=== PATIENT | male | born 1980 | race Caucasian/White ===

== ENCOUNTER 2020-02-07 08:59 | Emergency (ER) | payer OTHER, SELFPAY ==
--- NOTE | ~2020-02-07 | XR_ITS ---
EXAMINATION: XR ribs RT 2V w CXR 2V DATE: 02/07/2020 09:55 INDICATION: Right chest pain. TECHNIQUE: Frontal and lateral views of the chest and 3 views of the right ribs were obtained. COMPARISON: Chest 2 views 10/31/2018 FINDINGS: CHEST TWO VIEWS: The chest demonstrates clear lungs without pneumonia, pleural effusion, or pneumotho rax. The heart size is normal. There is an old healed fracture of left clavicle. RIGHT RIBS: There is no rib fracture. IMPRESSION: 1. No rib fracture. Reviewed, dictated and finalized at location A. R TOBACCO HEAD IMPRESSION: 1. No rib fracture.
[2020-02-07 09:12] VITALS: BP 172/98; PULSE 89; RESP 18; TEMP 36.7; O2SAT 100; O2SAT 99
[2020-02-07] MEDS: LIDOCAINE 5% PATCH 1 PATCH TRANSDERM (09:49)
[2020-02-07] MEDS: SODIUM CHLORIDE 0.9% IV 1,000 ML 999 ML IV CONT (10:07)
[2020-02-07 10:14] LABS: Basophils Absolute Auto 0.1 K/mm3 (0.0-0.1); Basophils Percent Auto 0.6 % (0.2-1.2); Eosinophils Absolute Auto 0.3 K/mm3 (0-0.3); Eosinophils Percent Auto 3.4 % (0-4.4); Hematocrit 44.4 % (42.0-52.0); Hemoglobin 15.1 g/dL (14.0-18.0); Immature Granulocyte Absolute 0.02 K/mm3 (0.00-0.031); Immature Granulocyte Percent A 0.3 % (0-0.5); Lymphocytes Absolute Auto 2.35 K/mm3 (0.9-3.2); Lymphocytes Percent Auto 29.7 % (18.3-44.2); Mean Corpuscular Hemoglobin 30.3 pg (26-34); Mean Corpuscular Volume 89.2 fl (80-100); Mean Platelet Volume 10.3 fl (7.4-10.4); Monocytes Absolute Auto 0.5 K/mm3 (0.1-0.6); Monocytes Percent Auto 6.4 % (2.6-8.5); Neutrophils Absolute Auto 4.7 K/mm3 (1.3-6.7); Neutrophils Percent Auto 59.6 % (45.5-73.1); Platelet Count Result 234 k/mm3 (150-375); Red Blood Count 4.98 M/mm3 (4.6-6.20); Red Cell Distribution Width 12.9 % (11.5-14.5); White Blood Count 7.9 K/mm3 (4.5-10.0)
--- NOTE | 2020-02-07 10:16 | ED.GENADULT ---
HPI - General Adult General Chief complaint: Unspecified Stated complaint: right rib pain Time Seen by Provider: 02/07/20 09:06 Source: patient Mode of arrival: ambulatory Limitations: no limitations History of Present Illness HPI narrative: Patient is a 39-year-old male who presents with several days duration of anterior lateral right rib pain patient notes coughing spell with development of pain which has persisted worse with any breathing or palpation patient denies radiation of pain or other complaints patient denies URI symptoms patient on arrival to emergency department is in no distress and does not take anything for his symptoms Related Data Allergies Allergy/AdvReac Type Severity Reaction Status Date / Time No Known Allergies Allergy Mild Verified 02/07/20 09:27 Review of Systems Review of Systems: All systems reviewed & are unremarkable except as noted in HPI and below PMFSH Social History Social History Gender identity (if verbalized by the patient): Male Exam Narrative: Exam Narrative: GENERAL: Well-appearing, well-nourished, and in no acute distress. HEAD: Normocephalic, atraumatic. EYES: PERRLA and EOMI. ENT: Nares clear, no rhinorrhea or epistaxis. Mucous membranes moist. NECK: Supple. No adenopathy or masses. CHEST: Clear to auscultation. No respiratory distress. No wheezes rales or rhonchi. Tenderness of the anterior lateral right ribs no deformity noted point tenderness no rash or other abnormality HEART: Regular rate and rhythm. No murmur heard. Normal peripheral pulses. ABDOMEN: Soft, nontender, nondistended EXTREMITIES: Normal range of motion. No edema. SKIN: Warm, dry, no rash. NEURO: No focal deficits. Alert and oriented x3. Cranial nerves II through XII grossly intact PSYCH: Normal mood and affect. Course Course Emergency Course: Patient in the room at this time aware of case findings treatment plan diagnosis will be discharged home for plan follow-up with primary care for reevaluation of his blood pressure and other concerns patient will be treated for chest wall pain Vital Signs Vital signs: Vital Signs Temperature 98.0 F 02/07/20 09:12 Pulse Rate 89 02/07/20 09:12 Respiratory Rate 18 02/07/20 09:12 Blood Pressure 172/98 H 02/07/20 09:12 Pulse Oximetry 99 02/07/20 09:12 Temperature 98.0 F 02/07/20 09:12 Pulse Rate 89 02/07/20 09:12 Respiratory Rate 18 02/07/20 09:12 Blood Pressure 172/98 H 02/07/20 09:12 Pulse Oximetry 100 02/07/20 09:12 Medical Decision Making MDM Narrative Medical decision making narrative: Patient in the room no distress no concerning findings on the chest x-ray the negative D-dimer coupled with vital signs it is felt that the patient does not likely have a PE patient will be managed outpatient given reasons to return. Patient afebrile nontoxic-appearing. ABCs stable hemodynamically stable Vital Signs Vital Signs: Vital Signs Temperature 98.0 F 02/07/20 09:12 Pulse Rate 89 02/07/20 09:12 Respiratory Rate 18 02/07/20 09:12 Blood Pressure 172/98 H 02/07/20 09:12 Pulse Oximetry 99 02/07/20 09:12 Temperature 98.0 F 02/07/20 09:12 Pulse Rate 89 02/07/20 09:12 Respiratory Rate 18 02/07/20 09:12 Blood Pressure 172/98 H 02/07/20 09:12 Pulse Oximetry 100 02/07/20 09:12 Lab Data Result diagrams: 02/07/20 10:07 02/07/20 10:07 Labs: Lab Results 02/07/20 02/07/20 02/07/20 Range/Units 10:07 10:07 10:07 WBC 7.9 (4.5-10.0) K/mm3 RBC 4.98 (4.6-6.20) M/mm3 Hgb 15.1 (14.0-18.0) g/dL Hct 44.4 (42.0-52.0) % MCV 89.2 (80-100) fl MCH 30.3 (26-34) pg MCHC 34.0 (32-36) g/dl RDW 12.9 (11.5-14.5) % Plt Count 234 (150-375) k/mm3 MPV 10.3 (7.4-10.4) fl Immature Gran % (Auto) 0.3 (0-0.5) % Neut % (Auto) 59.6 (45.5-73.1) % Lymph % (Auto) 29.7 (18.3-44.
[2020-02-07 10:26] LABS: D Dimer 0.32 ug/mL (<0.48); Potassium 4.2 mmol/L (3.4-5.0)
[2020-02-07 10:35] LABS: Alanine Aminotransferase 61 U/L (4-50); Albumin Level 4.3 g/dL (3.5-5.1); Alkaline Phosphatase 110 U/L (38-126); Anion Gap 8 mmol/L (8-16); Aspartate Amino Transferase 51 U/L (17-59); Bilirubin,Total 0.5 mg/dL (0.2-1.3); Blood Urea Nitrogen 9 mg/dL (9-20); Calcium 9.3 mg/dL (8.4-10.2); Carbon Dioxide 26 mmol/L (22-30); Chloride 106 mmol/L (98-107); Estimated CRCL calculation 127 ml/min; Estimated Glomerular Filt Rate > 60; Glucose 110 mg/dL (75-110); Sodium 140 mmol/L (137-145)
[2020-02-07 10:50] LABS: Add Urine Microscopic? NO; Appearance Urine Clear (Clear); Bilirubin Urine Negative (Negative); Blood Urine Negative (Negative); Color Urine Straw (Yellow); Glucose Urine UA Negative (Negative); Ketones Urine Negative (Negative); Leukocyte Esterase Ur Negative LEU/UL (Negative); Mucus Urine Rare /lpf; Nitrate Urine Negative (Negative); Protein Urine Negative (Negative); RBC Urine 0-2 /hpf (0-2); Specific Grav Ur 1.013 (1.001-1.035); Urobilinogen Urine Negative mg/dL (<2.0); WBC Urine 0-3 /hpf
[2020-02-07] MEDS: KETOROLAC 30 MG/ML VIAL (*BKC) IV PUSH (11:27)
[2020-02-07 12:12] VITALS: BP 158/63; PULSE 68; RESP 18; O2SAT 98
== END 2020-02-07 12:17 | disposition home or self-care (01) ==
PROVIDERS: Emergency Medicine Emergency Medical Services; Emergency Provider Emergency Medicine
DX: R07.89 Other chest pain (principal)
CPT/HCPCS: 36415; 71046; 71100; 80053; 81003; 85025; 85380; 96361; 96365; 96375; 99284; A9270; J0131; J1885; J7030

== ENCOUNTER 2020-08-26 08:22 | Emergency (ER) | payer OTHER, SELFPAY ==
[2020-08-26 08:28] VITALS: BP 191/106; PULSE 92; RESP 20; TEMP 36.7; O2SAT 98
--- NOTE | 2020-08-26 08:46 | ED.URI ---
HPI - URI/Sore Throat General Chief Complaint: Upper Respiratory Infection Stated Complaint: Sore Throat, congestion, no taste or smell Time Seen by Provider: 08/26/20 08:46 Source: patient, RN notes reviewed and old records reviewed Mode of arrival: ambulatory Limitations: no limitations History of Present Illness HPI Narrative: 39 year old male [facility] with complaints of sore throat for the past 9 days with white patches noted to the back of his throat. He states that since he has had nausea, headache, congestion nasally with cough. He reports he has no energy and he has loss of taste and smell since . Patient reports that he did have 101F fever yesterday and has been taking Ibuprofen for his symptoms. Patient states that his daughters are ill also. MD elicited complaint: fever, cough, sore throat, rhinorrhea and nasal congestion Pertinent past history: pneumonia and other (strep pharyngitis) Onset (ago): day(s) (9) Consistency: constant and progressively worsening Description of mucous: yellow Able to tolerate fluids by mouth: Yes Exacerbating factors: swallowing Relieving factors: nothing Context: sick contacts Associated symptoms: chills, headache, rhinorrhea, nasal congestion, sore throat, cough, nausea and other (loss of taste and smell) Treatments prior to arrival: ibuprofen Related Data Allergies Allergy/AdvReac Type Severity Reaction Status Date / Time No Known Allergies Allergy Mild Verified 08/26/20 08:56 Review of Systems Review of Systems: Narrative: CONSTITUTIONAL: Positive fever, chills, or sweats. EYES: Denies visual changes, redness, or discharge. ENT: Positive rhinorrhea, congestion, sore throat, no otalgia. CARDIOVASCULAR: Denies chest pain, palpitations, or edema. RESPIRATORY: Positive cough denies dyspnea. GASTROINTESTINAL: Denies abdominal pain, positive for nausea,no vomiting, or diarrhea. GENITOURINARY: Denies dysuria or hematuria. SKIN: Denies rash or itching. MUSCULOSKELETAL: Denies back pain, joint pain, or myalgia. NEUROLOGIC: Positive headache,no numbness, or weakness, reports loss of energy PSYCHIATRIC: Denies anxiety or depression. All systems reviewed & are unremarkable except as noted in HPI and below PMFSH Past Medical History Medical History (Updated 08/26/20 @ 09:22 by Holli Chacko NP) Pneumonia Strep pharyngitis Surgical History Surgical History (Updated 08/26/20 @ 09:18 by Holli Chacko NP) No history of previous surgery Family History Family History (Updated 08/26/20 @ 09:18 by Holli Chacko NP) Grandparent Breast cancer Alzheimers disease Father Diabetes mellitus Hypertension Social History Social History (Updated 08/26/20 @ 09:09 by Holli Chacko NP) Smoking packs per day: 0.5 Smoking cigarettes per day: 10.0 Years smoked: 20 Smoking pack-years: 10.00 Smoking status: Current every day smoker Alcohol intake: current Alcohol use details: social Substance use: never Living arrangements: with family Gender identity (if verbalized by the patient): Male Comments At time of signature, agree with nursing past medical, surgical, social and family history. There is no relevant family history pertinent to the presenting complaint Exam Narrative: Exam Narrative: GENERAL: Well-appearing, well-nourished, and in no acute distress. HEAD: Normocephalic, atraumatic. EYES: PERRLA and EOMI. ENT: Nares red with clear rhinorrhea no epistaxis. Mucous membranes moist.TM's normal with good light reflex throat bright red with tonsils red, increase pain with swallowing, NECK: Supple.no lymphadenopathy CHEST: Clear to auscultation. No respiratory distress.SAO2 98%, cough productive yellow HEART: Regular rate and rhythm. No murmur heard. Normal peripheral pulses. ABDOMEN: Soft, nontender, nondistended, normal active bowel sounds. EXTREMITIES: Normal range of motion. No edema. SKIN: Warm, dry, no rash. NEURO: No
[2020-08-26 09:20] VITALS: BP 160/90
[2020-08-27 17:38] LABS: SARS-CoV-2 RNA PCR Negative
== END 2020-08-26 09:30 | disposition home or self-care (01) ==
PROVIDERS: Emergency Provider Registered Nurse
DX: J06.9 Acute upper respiratory infection, unspecified (principal); J03.90 Acute tonsillitis, unspecified; Z20.822 Contact with and (suspected) exposure to COVID-19; F17.210 Nicotine dependence, cigarettes, uncomplicated
CPT/HCPCS: 87081; 87426; 87804; 87880; 99213; C9803; G0463; U0003; U0005

== ENCOUNTER 2020-12-28 08:03 | Emergency (ER) | payer OTHER, SELFPAY ==
[2020-12-28 08:08] VITALS: BP 180/117; PULSE 87; RESP 16; TEMP 36.4; O2SAT 100
--- NOTE | 2020-12-28 08:11 | ED.SKABFB ---
HPI - Skin/Abscess/Foreign Bdy General Chief complaint: Dental/Oral Stated complaint: swollen on face Source: patient Mode of arrival: ambulatory Limitations: no limitations History of Present Illness HPI narrative: Patient is a 40-year-old male who presents with right-sided facial pain and swelling starting this a.m. He reports pain of 8/10. Patient has swelling to right cheek and right lip. Patient was concerned as he started lisinopril this week for blood pressure and also on bupropion to quit smoking. He reports pain with palpation. He reports when he pressed on his face this morning he felt something pop . He also reports right upper dental pain starting this a.m. He is able to maintain secretions and has no shortness of breath at this time. He denies taking [id number] medications prior to arrival. Related Data Home Medications Medication Instructions Recorded Confirmed bupropion HCl (smoking deter) 150 mg PO DAILY 12/28/20 12/28/20 lisinopril 20 mg PO DAILY 12/28/20 12/28/20 Allergies Allergy/AdvReac Type Severity Reaction Status Date / Time No Known Allergies Allergy Mild Verified 12/28/20 08:22 Review of Systems Review of Systems: CONSTITUTIONAL: Denies fever, chills, or sweats. EYES: Denies visual changes, redness, or discharge. ENT: Denies rhinorrhea, congestion, sore throat, or otalgia. Reports right facial swelling and right upper dental pain. CARDIOVASCULAR: Denies chest pain, palpitations, or edema. RESPIRATORY: Denies cough or dyspnea. GASTROINTESTINAL: Denies abdominal pain, nausea, vomiting, or diarrhea. GENITOURINARY: Denies dysuria or hematuria. SKIN: Denies rash or itching. MUSCULOSKELETAL: Denies back pain, joint pain, or myalgia. NEUROLOGIC: Denies headache, numbness, dizziness, or weakness. PSYCHIATRIC: Denies anxiety or depression. [facility] Past Medical History Medical History Pneumonia Strep pharyngitis Surgical History Surgical History No history of previous surgery Family History Family History Grandparent Breast cancer Alzheimers disease Father Diabetes mellitus Hypertension Social History Social History Smoking packs per day: 0.5 Smoking cigarettes per day: 10.0 Years smoked: 20 Smoking pack-years: 10.00 Smoking status: Current every day smoker Alcohol intake: current Alcohol use details: social Substance use: never Gender identity (if verbalized by the patient): Male Comments At the time of signature, I have reviewed and agree with nursing past medical, surgical, social, and family history unless otherwise noted. Please see nursing chart for further information. There is no relevant family history pertinent to the presenting complaint. Exam Narrative: GENERAL: Well-appearing, well-nourished, and in no acute distress. HEAD: Normocephalic, atraumatic. EYES: EOMI. No redness or drainage. Conjunctiva are normal. ENT: Mucous membranes pink and moist. Multiple dental caries. Throat normal. Uvula midline. Swelling to right cheek, tender with palpation, edema to right upper lip. NECK: AROM. Supple. No lymphadenopathy. CHEST: No respiratory distress. HEART: Regular rate and rhythm. EXTREMITIES: Normal range of motion. No edema. SKIN: Warm, dry, no rash. NEURO: No focal deficits. Alert and oriented x3. Gait steady. PSYCH: Normal affect. No signs of depression or anxiety. MDM - Skin/Abscess/Foreign Bdy MDM Narrative Medical decision making narrative: Patient started on antibiotics for dental infection. Discussed with patient swelling is most likely not due to lisinopril. Patient is aware he needs to contact PCP on Wednesday. Patient is aware of red flags that require further evaluation in the emergency department. P
[2020-12-28] MEDS: KETOROLAC (*BKC) 60 MG/2 ML VIAL IM (08:34)
[2020-12-28 08:54] VITALS: BP 168/115
== END 2020-12-28 08:54 | disposition home or self-care (01) ==
PROVIDERS: Emergency Provider Nurse Practitioner; PCP Hospitalist
DX: K04.7 Periapical abscess without sinus (principal); F17.210 Nicotine dependence, cigarettes, uncomplicated
CPT/HCPCS: 96372; 99213; G0463; J1885